=== PATIENT | male | born 1985 | race Caucasian/White ===

== ENCOUNTER 2017-02-20 23:39 | Emergency (ER) | payer SELFPAY ==
[2017-02-20 23:46] VITALS: BP 135/85
--- NOTE | 2017-02-21 00:03 | EDM.PDOC ---
ED HPI GENERAL MEDICAL PROBLEM - General Chief Complaint: Abdominal Pain Stated Complaint: [facility] Time Seen by Provider: 02/21/17 00:03 - History of Present Illness INITIAL COMMENTS - FREE TEXT/NARRATIVE: 31-year-old male brought into the emergency room by EMS after having too much to drink. Patient admits to having too much to drink he cannot quantify exactly much it was. He denies any drugs. He denies any suicidal wishes or intentions.. The patient thinks he may have bumped his head he has a little bit of a headache. Otherwise he denies any pain. He has some nausea no vomiting, denies abdominal pain. Patient states he does not drink on a regular basis he just over did it tonight. Lower Abdomen Pain Score (Numeric/FACES): 8 - Related Data Allergies Allergy/AdvReac Type Severity Reaction Status Date / Time No Known Allergies Allergy Verified 02/20/17 23:46 Home Meds: Home Meds . [Unable to Verify Home Med List] 02/20/17 [History] Past Medical History - Past Health History Medical/Surgical History: Denies Medical/Surgical History Other HEENT History: wears contacts Cardiovascular History: Reports: High Cholesterol, Hypertension Other Cardiovascular History: takes medications can't recall Gastrointestinal History: Reports: Hemorrhoids, Other (See Below) Other Gastrointestinal History: abdominal pain in past, anal fissure Musculoskeletal History: Reports: Back Pain, Chronic, Fracture, Other (See Below ) Other Musculoskeletal History: base of skull, vertebraes Neurological History: Reports: Migraines Psychiatric History: Reports: Anxiety, Panic Attack Endocrine/Metabolic History: Reports: Hypothyroidism Other Endocrine/Metabolic History: take meds that can't recall - Past Surgical History Other HEENT Surgeries/Procedures: eye surgery Social & Family History - Family History Family Medical History: Noncontributory Neurological: Reports: CVA - Tobacco Use Smoking Status *Q: Never Smoker Years of Tobacco use: 3 Packs/Tins Daily: 0.5 Used Tobacco, but Quit: Yes Month Tobacco Last Used: September Second Hand Smoke Exposure: No - Caffeine Use Caffeine Use: Reports: None - Alcohol Use Days Per Week of Alcohol Use: 2 Number of Drinks Per Day: 8 Total Drinks Per Week: 16 - Recreational Drug Use Recreational Drug Use: Yes Drug Use in Last 12 Months: No Recreational Drug Type: Reports: Marijuana/Hashish Recreational Drug Use Frequency: Not Used In Over 5 Months ED ROS GENERAL - Review of Systems Review Of Systems: See Below Constitutional: Reports: No Symptoms HEENT: Reports: No Symptoms Respiratory: Reports: No Symptoms Cardiovascular: Reports: No Symptoms GI/Abdominal: Reports: No Symptoms Musculoskeletal: Reports: No Symptoms Neurological: Reports: Headache. Denies: No Symptoms, Confusion, Dizziness, Seizure, Syncope, Tremors, Difficulty Walking ED EXAM, GENERAL - Physical Exam Exam: See Below Exam Limited By: No Limitations General Appearance: Alert, No Apparent Distress, Other (He is intoxicated but is cooperative) Ears: Normal External Exam, Normal Canal, Hearing Grossly Normal, Normal TMs Nose: Normal Inspection, Normal Mucosa, No Blood Throat/Mouth: Normal Inspection, Normal Lips, Normal Teeth, Normal Gums, Normal Oropharynx, Normal Voice, No Airway Compromise Head: Atraumatic, Normocephalic Neck: Normal Inspection, Supple, Non-Tender, Full Range of Motion Respiratory/Chest: No Respiratory Distress, Lungs Clear, Normal Breath Sounds, No Accessory Muscle Use, Chest Non-Tender Cardiovascular: Normal Peripheral Pulses, Regular Rate, Rhythm, No Edema, No Gallop, No JVD, No Murmur, No Rub GI/Abdominal: Normal Bowel Sounds, Soft, Non-Tender Back Exam: Normal Inspection, Full Range of Motion. No: CVA Tenderness (L), CVA Tenderness (R) Neurological: Alert, Other (He is intoxicated) Course - Vital Signs Last Recorded V/S: Last Vital Signs Temp 36.1 C 02/20/17 23:42 Pulse 81 02/20/17 23:42 Resp 12 02/20/17 23:42 BP 135/85 02/20/17 23:42 Pulse Ox 95 02/20/17 23:42 - Orders/Labs/Meds Orders: Active Orders 24 hr Category Date Time Status Head wo Cont [CT] Stat Exams 02/21/17 01:15 Taken Labs: Laboratory Tests 02/21/17 02/21/17 02/21/17 Range/Units 00:50 00:50 00:50 WBC 6.28 (4.23-9.07) K/mm3 RBC 4.88 (4.63-6.08) M/mm3 Hgb 15.5 (13.7-17.5) gm/L Hct 42.7 (40.1-51.0) % MCV 87.5 (79.0-92.2) fl MCH 31.8 (25.7-32.2) pg MCHC 36.3 H (32.2-35.5) g/dl RDW Std Deviation 38.2 (35.1-43.9) fL Plt Count 303 (163-337) K/mm3 MPV 9.3 L (9.4-12.3) fl Neutrophils % (Manual) 67 H (40-60) % Band Neutrophils % 0 (0-10) % Lymphocytes % (Manual) 29 (20-40) % Monocytes % (Manual) 4 (2-10) % Eosinophils % (Manual) 0 L (0.8-7.0) % Basophils % (Manual) 0 L (0.2-1.2) Platelet Estimate Adequate Plt Morphology Comment Normal RBC Morph Comment Normal Sodium 143 (136-145) mEq/L Potassium 3.2 L (3.5-5.1) mEq/L Chloride 105 (98-107) mEq/L Carbon Dioxide 25 (21-32) mEq/L Anion Gap 16.2 H (5-15) BUN 11 (7-18) mg/dL Creatinine 0.8 (0.7-1.3) mg/dL Est Cr Clr Drug Dosing TNP Estimated GFR (MDRD) > 60 (>60) mL/min BUN/Creatinine Ratio 13.8 L (14-18) Glucose 116 H (74-106) mg/dL Calcium 8.1 L (8.5-10.1) mg/dL Total Bilirubin 0.3 (0.2-1.0) mg/dL AST 37 (15-37) U/L ALT 72 H (16-63) U/L Alkaline Phosphatase 77 (46-116) U/L Total Protein 7.6 (6.4-8.2) g/dl Albumin 3.8 (3.4-5.0) g/dl Globulin 3.8 gm/dL Albumin/Globulin Ratio 1.0 (1-2) TSH 3rd Generation 0.206 L (0.358-3.74) uIU/mL Urine Color (Yellow) Urine Appearance (Clear) Urine pH (5.0-8.0) Ur Specific [place] (1.005-1.030) Urine Protein (Negative) Urine Glucose (UA) (Negative) Urine Ketones (Negative) Urine Occult Blood (Negative) Urine Nitrite (Negative) Urine Bilirubin (Negative) Urine Urobilinogen (0.2-1.0) Ur Leukocyte Esterase (Negative) Urine RBC (0-5) /hpf Urine WBC (0-5) /hpf Ur Epithelial Cells (0-5) /hpf Urine Bacteria (FEW) /hpf Urine Mucus (FEW) /hpf Salicylates 0.6 L (2.8-20) mg/dL Urine Opiates Screen (NEGATIVE) Ur Buprenorphine Scrn (NEGATIVE) Ur Oxycodone Screen (NEGATIVE) Urine Methadone Screen (NEGATIVE) Ur Propoxyphene Screen (NEGATIVE) Acetaminophen 0 L (10-30) ug/mL Ur Barbiturates Screen (NEGATIVE) Ur Tricyclics Screen (NEGATIVE) Ur Phencyclidine Scrn (NEGATIVE) Ur Amphetamine Screen (NEGATIVE) U Methamphetamines Scrn (NEGATIVE) U Benzodiazepines Scrn (NEGATIVE) U Cocaine Metab Screen (NEGATIVE) U Marijuana (THC) Screen (NEGATIVE) Ethyl Alcohol 0.19 (0.00) gm% 02/21/17 02/21/17 Range/Units 02:41 02:41 WBC (4.23-9.07) K/mm3 RBC (4.63-6.08) M/mm3 Hgb (13.7-17.5) gm/L Hct (40.1-51.0) % MCV (79.0-92.2) fl MCH (25.7-32.2) pg MCHC (32.2-35.5) g/dl RDW Std Deviation (35.1-43.9) fL Plt Count (163-337) K/mm3 MPV (9.4-12.3) fl Neutrophils % (Manual) (40-60) % Band Neutrophils % (0-10) % Lymphocytes % (Manual) (20-40) % Monocytes % (Manual) (2-10) % Eosinophils % (Manual) (0.8-7.0) % Basophils % (Manual) (0.2-1.2) Platelet Estimate Plt Morphology Comment RBC Morph Comment Sodium (136-145) mEq/L Potassium (3.5-5.1) mEq/L Chloride (98-107) mEq/L Carbon Dioxide (21-32) mEq/L Anion Gap (5-15) BUN (7-18) mg/dL Creatinine (0.7-1.3) mg/dL Est Cr Clr Drug Dosing Estimated GFR (MDRD) (>60) mL/min BUN/Creatinine Ratio (14-18) Glucose (74-106) mg/dL Calcium (8.5-10.1) mg/dL Total Bilirubin (0.2-1.0) mg/dL AST (15-37) U/L ALT (16-63) U/L Alkaline Phosphatase (46-116) U/L Total Protein (6.4-8.2) g/dl Albumin (3.4-5.0) g/dl Globulin gm/dL Albumin/Globulin Ratio (1-2) TSH 3rd Generation (0.358-3.74) uIU/mL Urine Color Yellow (Yellow) Urine Appearance Clear (Clear) Urine pH 6.0 (5.0-8.0) Ur Specific [place] 1.020 (1.005-1.030) Urine Protein Negative (Negative) Urine Glucose (UA) Negative (Negative) Urine Ketones Trace H (Negative) Urine Occult Blood Negative (Negative) Urine Nitrite Negative (Negative) Urine Bilirubin Negative (Negative) Urine Urobilinogen 0.2 (0.2-1.0) Ur Leukocyte Esterase Negative (Negative) Urine RBC 0-5 (0-5) /hpf Urine WBC 0-5 (0-5) /hpf Ur Epithelial Cells 0-5 (0-5) /hpf Urine Bacteria Not seen (FEW) /hpf Urine Mucus Not seen (FEW) /hpf Salicylates (2.8-20) mg/dL Urine Opiates Screen Negative (NEGATIVE) Ur Buprenorphine Scrn Negative (NEGATIVE) Ur Oxycodone Screen Negative (NEGATIVE) Urine Methadone Screen Negative (NEGATIVE) Ur Propoxyphene Screen Negative (NEGATIVE) Acetaminophen (10-30) ug/mL Ur Barbiturates Screen Negative (NEGATIVE) Ur Tricyclics Screen Negative (NEGATIVE) Ur Phencyclidine Scrn Negative (NEGATIVE) Ur Amphetamine Screen Negative (NEGATIVE) U Methamphetamines Scrn Negative (NEGATIVE) U Benzodiazepines Scrn Negative (NEGATIVE) U Cocaine Metab Screen Negative (NEGATIVE) U Marijuana (THC) Screen Negative (NEGATIVE) Ethyl Alcohol (0.00) gm% Meds: Medications Discontinued Medications Generic Name Dose Route Start Last Admin Trade Name Freq PRN Reason Stop Dose Admin Lactated Ringer's 1,000 mls @ 999 mls/hr 02/21/17 00:46 02/21/17 01:32 Ringers, Lactated IV 02/21/17 01:46 999 mls/hr .BOLUS ONE Administration Ondansetron HCl 4 mg 02/21/17 00:46 02/21/17 01:32 Zofran IVPUSH 02/21/17 00:47 4 mg ONETIME ONE Administration - Re-Assessments/Exams Free Text/Narrative Re-Assessment/Exam: 02/21/17 03:39 Patient has done well in the emergency department labs reviewed. Patient again confirms he is not suicidal and has no wishes to hurt himself he will be discharged home. Departure - Departure Time of Disposition: 03:40 Disposition: Home, Self-Care 01 Clinical Impression: Alcohol intoxication Qualifiers: Complication of substance-induced condition: uncomplicated Qualified Code(s): F10.120 - Alcohol abuse with intoxication, uncomplicated - Discharge Information Forms: ED Department Discharge Additional Instructions: Return to the emergency room with any questions or problems. - My Orders Last 24 Hours: My Active Orders 02/21/17 01:15 Head wo Cont [CT] Stat - Assessment/Plan Last 24 Hours: My Active Orders 02/21/17 01:15 Head wo Cont [CT] Stat
[2017-02-21] MEDS ORDERED: Ondansetron 4 MG/2 ML SDV IVPUSH ONE (00:46)
[2017-02-21] MEDS ORDERED: Lactated Ringers 1,000 ML IV ONE (00:46)
[2017-02-21 01:34] LABS: ACETAMINOPHEN 0 ug/mL (10-30)
--- NOTE | 2017-02-21 08:42 | CT ---
Head CT Technique: Multiple axial sections through the brain were obtained. Intravenous contrast was not utilized. Comparison: Previous head CT exam of 03/29/14 is available. Findings: Ventricles along with basal cisterns and sulci over the convexities are within normal limits for the patient's age. No abnormal parenchymal densities are seen. No evidence of intracranial hemorrhage. No midline shift or mass effect is seen. Bone window settings were reviewed which show no discrete calvarial abnormality. Visualized sinuses are clear. Impression: 1. No acute intracranial abnormality is identified. No significant change is appreciated from prior head CT exam. Diagnostic code #1 Agree with preliminary report issued by [facility] ([facility] preliminary report dictated on 02/21/17, 3:16 AM Central Time)
== END 2017-02-21 03:56 | disposition home or self-care (01) ==
LOC: JD.ED 23:39
DX: F10.120 Alcohol abuse with intoxication, uncomplicated (principal); I10 Essential (primary) hypertension; E78.00 Pure hypercholesterolemia, unspecified; G43.909 Migraine, unspecified, not intractable, without status migrainosus; F41.9 Anxiety disorder, unspecified; E03.9 Hypothyroidism, unspecified; Z87.891 Personal history of nicotine dependence; Y90.0 Blood alcohol level of less than 20 mg/100 ml
CPT/HCPCS: 36415; 70450; 80053; 80306; 81001; 84443; 85025; 96361; 96374; 99285; G0480; J2405; J7120; 99284

== ENCOUNTER 2017-04-25 01:23 | Emergency (ER) | payer SELFPAY ==
[2017-04-25] MEDS ORDERED: LORazepam 2 MG/ML MDV IVPUSH ONE (01:41)
[2017-04-25] MEDS ORDERED: Metoclopramide 10 MG/2 ML SDV IVPUSH ONE (01:41)
--- NOTE | 2017-04-25 01:44 | EDM.PDOC ---
ED HPI GENERAL MEDICAL PROBLEM - General Chief Complaint: Chest Pain Stated Complaint: chest pain Time Seen by Provider: 04/25/17 01:40 Source of Information: Reports: Patient History Limitations: Reports: No Limitations - History of Present Illness INITIAL COMMENTS - FREE TEXT/NARRATIVE: 32-year-old male who is quite intoxicated by alcohol presents to the ED stating that he developed right-sided chest pain around midnight. States it hurts worse when he takes a deep breath. He does have a bit of a cough but is not bringing up any sputum. He does not smoke cigarettes. Denies any fever or chills. Denies any recent vomiting or blood in emesis or stool. Admits to having a lot of heartburn and indigestion symptoms. He has not take Zantac or Prilosec. He states a lot of times Tums seems to make things worse rather than better. He reports he did fall about 3 days ago and landed hard on his right side of his chest. ECG done by triage nurse shows a sinus rhythm at 95/m with a left anterior fascicular block and left axis deviation of -43 there is poor R-wave progression but no signs of ischemia. Onset: Today, Sudden Onset Date: 04/25/17 Onset Time: 00:00 Duration: Hour(s):, Intermittent, Waxing/Waning Location: Reports: Chest (Right anterior chest.) Quality: Reports: Sharp, Stabbing Severity: Moderate Improves with: Reports: None Worsens with: Reports: Breathing Context: Denies: Activity, Exercise, Lifting, Sick Contact, Trauma, Other Associated Symptoms: Reports: Chest Pain, Cough, Shortness of Breath. Denies: No Other Symptoms, Confusion (See history present illness), cough w sputum ( Nonproductive), Diaphoresis, Fever/Chills, Headaches, Loss of Appetite, Malaise , Nausea/Vomiting, Rash, Seizure, Syncope, Weakness (Can take a deep breath because it makes the pain worse.) Treatments LUMBER MARKER: Reports: Other (see below) (None.) Right Middle Chest Pain Score (Numeric/FACES): 6 - Related Data Allergies Allergy/AdvReac Type Severity Reaction Status Date / Time No Known Allergies Allergy Verified 02/20/17 23:46 Home Meds: Home Meds Hydrochlorothiazide 25 mg PO DAILY 04/25/17 [History] Levothyroxine Sodium [Synthroid] 200 mcg PO DAILY 04/25/17 [History] buPROPion [Wellbutrin XL] 150 mg PO DAILY 04/25/17 [History] Past Medical History - Past Health History Medical/Surgical History: Denies Medical/Surgical History HEENT History: Reports: Impaired Vision Other HEENT History: wears contacts Cardiovascular History: Reports: High Cholesterol, Hypertension Other Cardiovascular History: takes medications can't recall Respiratory History: Reports: Asthma Gastrointestinal History: Reports: Hemorrhoids, Other (See Below) Other Gastrointestinal History: abdominal pain in past, anal fissure Genitourinary History: Reports: Other (See Below) Other Genitourinary History: painful urination Musculoskeletal History: Reports: Back Pain, Chronic, Fracture, Other (See Below ) Other Musculoskeletal History: base of skull, vertebraes Neurological History: Reports: Migraines Psychiatric History: Reports: Anxiety, Panic Attack Endocrine/Metabolic History: Reports: Hypothyroidism Other Endocrine/Metabolic History: take meds that can't recall - Past Surgical History HEENT Surgical History: Reports: Eye Surgery Other HEENT Surgeries/Procedures: eye surgery Social & Family History - Family History Family Medical History: Noncontributory Neurological: Reports: CVA - Tobacco Use Smoking Status *Q: Never Smoker Years of Tobacco use: 3 Packs/Tins Daily: 0.5 Used Tobacco, but Quit: Yes Month Tobacco Last Used: September Second Hand Smoke Exposure: No - Caffeine Use Caffeine Use: Reports: None - Alcohol Use Days Per Week of Alcohol Use: 2 Number of Drinks Per Day: 8 Total Drinks Per Week: 16 - Recreational Drug Use Recreational Drug Use: No Drug Use in Last 12 Months: No Recreational Drug Type: Reports: Marijuana/Hashish Recreational Drug Use Frequency: Not Used In Over 5 Months - Living Situation & Occupation Living situation: Reports: Occupation: Employed (Self-employed) [facility] [employer] [facility] - Review of Systems Review Of Systems: See Below Constitutional: Denies: Fever, Chills, Malaise, Weakness, Fatigue, Night Sweats , Diaphoresis, Decreased Appetite, Weight Loss HEENT: Reports: No Symptoms Respiratory: Reports: Shortness of Breath (Can take a deep breath as it makes pleuritic chest pain worse on the right chest.), Pleuritic Chest Pain (Right side of chest.), Cough. Denies: Wheezing, Sputum, Hemoptysis (Mild cough nonproductive) Cardiovascular: Reports: Chest Pain, Blood Pressure Problem (See history present illness). Denies: Claudication, Dyspnea on Exertion, Edema, Lightheadedness, Orthopnea ( controlled with medication), Palpitations Endocrine: Reports: No Symptoms GI/Abdominal: Reports: No Symptoms : Reports: Frequency Musculoskeletal: Reports: Back Pain (Intermittent problems with low back pain) Skin: Reports: No Symptoms Neurological: Reports: No Symptoms Psychiatric: Reports: Anxiety, Depression Hematologic/Lymphatic: Reports: No Symptoms, Other ED EXAM, GENERAL - Physical Exam Exam: See Below Exam Limited By: Intoxication (Patient is obviously quite intoxicated by alcohol ) General Appearance: Anxious, Mild Distress Eye Exam: Bilateral Eye: Conjunctival Injection (Bilaterally.), Nystagmus ( Moderate bilaterally on lateral gaze) Throat/Mouth: Normal Inspection, Normal Oropharynx, Normal Voice, Other (Speech is mildly dysarthric) Head: Atraumatic, Normocephalic, Other ( no recent evidence of fall or injury to the head) Neck: Normal Inspection, Supple, Non-Tender, Full Range of Motion. No: Lymphadenopathy (L), Lymphadenopathy (R) Respiratory/Chest: No Respiratory Distress, Lungs Clear, Decreased Breath Sounds (Patient is splinting and taking shallow respirations.). No: Respiratory Distress, Rales, Rhonchi, Wheezing, Stridor, Pleural Rub Cardiovascular: Normal Peripheral Pulses, Regular Rate, Rhythm, No Edema, No Gallop, No Murmur Peripheral Pulses: 2+: Posterior Tibial (L), Posterior Tibial (R), Dorsalis Pedis (L), Dorsalis Pedis (R) GI/Abdominal: Normal Bowel Sounds, Soft, Tender (Epigastrium and right upper quadrant with). No: Guarding ( no rebound or guarding), Rebound Back Exam: Normal Inspection, Full Range of Motion. No: CVA Tenderness (L), CVA Tenderness (R) Extremities: Normal Inspection, Normal Range of Motion, Non-Tender, No Pedal Edema Neurological: Alert, Oriented, CN II-XII Intact, Normal Cognition, No Motor/ Sensory Deficits. No: Normal Gait Psychiatric: Anxious Skin Exam: Warm, Dry, Intact, Normal Color, No Rash EKG INTERPRETATION EKG Date: 04/25/17 Time: 01:30 Rhythm: NSR Rate (Beats/Min): 95 [place]: LAD-Left [place] Deviation (-43 has a left anterior fascicular block pattern ) P-Wave: Present QRS: Other (R-wave progression) ST-T: Normal (with no signs of ischemia) QT: Normal Course - Vital Signs Last Recorded V/S: Last Vital Signs Temp 35.7 C 04/25/17 01:27 Pulse 95 04/25/17 01:27 Resp 18 04/25/17 01:27 BP 127/90 04/25/17 01:27 Pulse Ox 97 04/25/17 01:27 - Orders/Labs/Meds Orders: Active Orders 24 hr Category Date Time Status EKG 12 Lead [EKG Documentation Completion] [RC] STAT Care 04/25/17 01:34 Active Chest 1V Frontal [CR] Stat Exams 04/25/17 01:42 Taken DRUG SCREEN, URINE [URCHEM] Stat Lab 04/25/17 01:43 Uncollected Dextrose 5%-0.9% NaCl [Dextrose 5%-Normal Saline] 1,000 Med 04/25/17 01:45 Active ml IV ASDIRECTED Medication Orders Dextrose/Sodium Chloride (Dextrose 5%-Normal Saline) 1,000 mls @ 150 mls/hr IV ASDIRECTED STEPHANI Last Admin: 04/25/17 01:48 Dose: 150 mls/hr Labs: Laboratory Tests 04/25/17 04/25/17 04/25/17 Range/Units 01:41 01:41 01:41 WBC 8.14 (4.23-9.07) K/mm3 RBC 5.00 (4.63-6.08) M/mm3 Hgb 15.9 (13.7-17.5) gm/L Hct 44.5 (40.1-51.0) % MCV 89.0 (79.0-92.2) fl MCH 31.8 (25.7-32.2) pg MCHC 35.7 H (32.2-35.5) g/dl RDW Std Deviation 39.7 (35.1-43.9) fL Plt Count 348 H (163-337) K/mm3 MPV 9.2 L (9.4-12.3) fl Neutrophils % (Manual) 44 (40-60) % Band Neutrophils % 0 (0-10) % Lymphocytes % (Manual) 42 H (20-40) % Atypical Lymphs % 3 % Monocytes % (Manual) 8 (2-10) % Eosinophils % (Manual) 1 (0.8-7.0) % Basophils % (Manual) 2 H (0.2-1.2) Platelet Estimate Adequate Plt Morphology Comment Normal RBC Morph Comment Normal PT 9.9 (8.0-13.0) SECONDS INR 0.91 D-Dimer, Quantitative (0.19-0.59) mg/L Sodium 142 (136-145) mEq/L Potassium 3.2 L (3.5-5.1) mEq/L Chloride 102 (98-107) mEq/L Carbon Dioxide 27 (21-32) mEq/L Anion Gap 16.2 H (5-15) BUN 13 (7-18) mg/dL Creatinine 1.1 (0.7-1.3) mg/dL Est Cr Clr Drug Dosing 98.19 mL/min Estimated GFR (MDRD) > 60 (>60) mL/min BUN/Creatinine Ratio 11.8 L (14-18) Glucose 136 H (74-106) mg/dL Calcium 8.7 (8.5-10.1) mg/dL Total Bilirubin 0.4 (0.2-1.0) mg/dL AST TNP ALT 57 (16-63) U/L Alkaline Phosphatase 86 (46-116) U/L CK-MB (CK-2) 1.7 (0-3.6) ng/ml Troponin I < 0.017 (0.00-0.056) ng/mL C-Reactive Protein 0.5 (<1.0) mg/dL Total Protein 7.8 (6.4-8.2) g/dl Albumin 4.1 (3.4-5.0) g/dl Globulin 3.7 gm/dL Albumin/Globulin Ratio 1.1 (1-2) Lipase 170 (73-393) U/L Ethyl Alcohol 0.20 (0.00) gm% 04/25/17 04/25/17 Range/Units 04:36 04:36 WBC (4.23-9.07) K/mm3 RBC (4.63-6.08) M/mm3 Hgb (13.7-17.5) gm/L Hct (40.1-51.0) % MCV (79.0-92.2) fl MCH (25.7-32.2) pg MCHC (32.2-35.5) g/dl RDW Std Deviation (35.1-43.9) fL Plt Count (163-337) K/mm3 MPV (9.4-12.3) fl Neutrophils % (Manual) (40-60) % Band Neutrophils % (0-10) % Lymphocytes % (Manual) (20-40) % Atypical Lymphs % % Monocytes % (Manual) (2-10) % Eosinophils % (Manual) (0.8-7.0) % Basophils % (Manual) (0.2-1.2) Platelet Estimate Plt Morphology Comment RBC Morph Comment PT (8.0-13.0) SECONDS INR D-Dimer, Quantitative < 0.19 L (0.19-0.59) mg/L Sodium (136-145) mEq/L Potassium (3.5-5.1) mEq/L Chloride (98-107) mEq/L Carbon Dioxide (21-32) mEq/L Anion Gap (5-15) BUN (7-18) mg/dL Creatinine (0.7-1.3) mg/dL Est Cr Clr Drug Dosing mL/min Estimated GFR (MDRD) (>60) mL/min BUN/Creatinine Ratio (14-18) Glucose (74-106) mg/dL Calcium (8.5-10.1) mg/dL Total Bilirubin (0.2-1.0) mg/dL AST ALT (16-63) U/L Alkaline Phosphatase (46-116) U/L CK-MB (CK-2) 1.4 (0-3.6) ng/ml Troponin I < 0.017 (0.00-0.056) ng/mL C-Reactive Protein (<1.0) mg/dL Total Protein (6.4-8.2) g/dl Albumin (3.4-5.0) g/dl Globulin gm/dL Albumin/Globulin Ratio (1-2) Lipase (73-393) U/L Ethyl Alcohol (0.00) gm% Meds: Medications Generic Name Dose Route Start Last Admin Trade Name Freq PRN Reason Stop Dose Admin Dextrose/Sodium Chloride 1,000 mls @ 150 mls/hr 04/25/17 01:45 04/25/17 01:48 Dextrose 5%-Normal Saline IV 150 mls/hr ASDIRECTED STEPHANI Administration Discontinued Medications Generic Name Dose Route Start Last Admin Trade Name Lyric PRN Reason Stop Dose Admin Lorazepam 1 mg 04/25/17 01:41 04/25/17 01:48 Ativan IVPUSH 04/25/17 01:42 1 mg ONETIME ONE Administration Metoclopramide HCl 10 mg 04/25/17 01:41 04/25/17 01:49 Reglan IVPUSH 04/25/17 01:42 10 mg ONETIME ONE Administration - Radiology Interpretation Free Text/Narrative:: 32-year-old male presents to the ED rather intoxicated with complaints of sudden onset of right anterior chest pain. Described as fairly sharp and stabbing eye pleuritic. No associated severe cough or sputum production no fever or chills. Does have pain localized to the right anterior chest wall particularly ribs 4 and 5 in the midclavicular line. He is splinting respirations and not taking a deep breath due to the pain. Vital signs are stable including O2 sats of 97% on room air. ECG shows sinus rhythm at 95/m with poor R-wave progression and Magdaleno's of a left anterior fascicular block pattern. This is unchanged compared to previous ECGs. Plan 1 view chest x-ray routine labs to include cardiac markers and serum lipase level. Will be given Ativan 1 mg IV and Reglan 10 mg IV for sedation as I do not feel his chest pain is cardiac in origin. Appears to be chest wall in origin. - Re-Assessments/Exams Free Text/Narrative Re-Assessment/Exam: 04/25/17 03;05: Labs reveal a normal white count at 8.14. Hemoglobin is 15.9 with hematocrit of 44.5. Platelets 348,000. Coags are normal with a ET of 9.9 and INR 0.91. Chemistry shows a sodium of 142 potassium slightly low at 3.2 chloride 102 bicarbonate 27. Anion gap is slightly elevated at 16.2 creatinine is 1.1 lipase normal at 170. Blood alcohol is 0.20 g percent. CK-MB fraction is 1.7 troponin is less than 0.017. Patient has been basically sleeping since having into the ED. His chest x-ray done portably was sub par as he would not take a deep enough breath to allow good visualization of his lung banda. The portions of lung banda visualized are normal and cardiac silhouette is normal. No rib fractures were identified. No pneumothorax present. Plan I will repeat his cardiac markers at around 0430 hrs. 04/25/17 05:25 second set of cardiac markers are essentially the same or lower than they were initially. CK-MB fraction is 1.4 and his troponin was less than 0.017. D-dimer was less than 0.19. This essentially really rules out any cardiac related illness. His pain is chest wall in origin. Part likely aggravated by underlying anxiety. He will be discharged to home once he is fully walking and talking as he was fairly intoxicated with a blood alcohol of 0.20 g percent when he arrived in the ED. 04/25/17 06:33 he is now much more alert and awake. He is able to provide more history than he could initially. He does have chest wall pain on palpation of the ribs right lateral chest wall. There is no bruising or contusions. I reviewed the x-rays once again and again no rib fractures were identified. Departure - Departure Time of Disposition: 06:35 Disposition: Home, Self-Care 01 Condition: Fair Clinical Impression: Non-cardiac chest pain, Right-sided chest wall pain Acute alcohol intoxication Qualifiers: Complication of substance-induced condition: uncomplicated Qualified Code(s): F10.929 - Alcohol use, unspecified with intoxication, unspecified Referrals: PCP,Not In Area [Primary Care Provider] - Forms: ED Department Discharge Additional Instructions: Evaluation in the emergency room tonight due to right-sided chest pain came on around midnight. Pain was described as quite sharp and stabbing and painful to deep breathe which we call pleurisy. Electrocardiogram / heart tracing done in the emergency room was within normal limits showing no evidence of heart related illness. Chest x-ray was suboptimal as you did not take a very deep breath but visualized portions of the lungs and heart were normal. No broken ribs were identified as you indicated a recent fall 3 days ago landing on the right side of your chest. Blood tests were done on 2 occasions during her stay in the emergency room to rule out any heart related illness. No evidence of heart attack or elevated heart enzymes were identified. Also no evidence of blood clot in the lung identified. Pain appears to be chest wall in origin likely from recent fall 3 days ago with injury to the chest wall which includes muscles in between the ribs as well as the rib lining called the periosteum. The periosteum which has a lot of nerve endings in it. It can be viral wart of course trauma related. Treatment is Aleve 2 tablets every 8 hours as needed to relieve pain and inflammation. Blood alcohol content was 0.20 g percent greater than 3 times the legal limit to drive a automobile. Alcohol abuse make cause inflammation of the food pipe and stomach which can sometimes refer pain into the chest as well. If you're drinking alcohol regularly with no plans to modify her stop drinking then strongly suggest using Prilosec 20 mg every night at bedtime to protect the stomach lining. - My Orders Last 24 Hours: My Active Orders 04/25/17 01:34 EKG 12 Lead [EKG Documentation Completion] [RC] STAT 04/25/17 01:42 Chest 1V Frontal [CR] Stat 04/25/17 01:43 DRUG SCREEN, URINE [URCHEM] Stat 04/25/17 01:45 Dextrose 5%-0.9% NaCl [Dextrose 5%-Normal Saline] 1,000 ml IV ASDIRECTED - Assessment/Plan Last 24 Hours: My Active Orders 04/25/17 01:34 EKG 12 Lead [EKG Documentation Completion] [RC] STAT 04/25/17 01:42 Chest 1V Frontal [CR] Stat 04/25/17 01:43 DRUG SCREEN, URINE [URCHEM] Stat 04/25/17 01:45 Dextrose 5%-0.9% NaCl [Dextrose 5%-Normal Saline] 1,000 ml IV ASDIRECTED
[2017-04-25] MEDS ORDERED: Dextrose 5%-0.9% NaCl 1,000 ML IV SCH (01:45)
[2017-04-25 06:58] VITALS: BP 149/77
--- NOTE | 2017-04-29 11:49 | CR ---
Chest: Frontal view of the chest was obtained. Comparison: Previous chest x-ray of 02/24/16. Limited inspiratory effort is seen. Haziness is noted within the left lung base most likely due to atelectasis from poor inspiratory effort although difficult to completely exclude an early area of pneumonia. Lungs otherwise are grossly clear. Bony structures are grossly intact. Impression: 1. Poor inspiratory study. 2. Slight increased density within the left base as described above. Diagnostic code #3
== END 2017-04-25 06:58 | disposition home or self-care (01) ==
LOC: JD.ED 01:23
DX: R07.89 Other chest pain (principal); F10.120 Alcohol abuse with intoxication, uncomplicated; I10 Essential (primary) hypertension; J45.909 Unspecified asthma, uncomplicated; G43.909 Migraine, unspecified, not intractable, without status migrainosus; Z79.899 Other long term (current) drug therapy; Z98.890 Other specified postprocedural states; E78.00 Pure hypercholesterolemia, unspecified
CPT/HCPCS: 36415; 71010; 80053; 82553; 83690; 84484; 85025; 85379; 85610; 86140; 93005; 96361; 96374; 96375; 99285; G0480; J2060; J2765; J7042; 99284

== ENCOUNTER 2018-01-18 02:08 | Emergency (ER) | payer SELFPAY ==
[2018-01-18] MEDS ORDERED: LORazepam 2 MG/ML SDV IVPUSH PRN (02:28)
--- NOTE | 2018-01-18 02:30 | EDM.PDOC ---
ED HPI GENERAL MEDICAL PROBLEM <Doug Puentes Anabelle - Last Filed: 01/18/18 10:24> - General Source of Information: Reports: Patient, EMS History Limitations: Reports: Intoxication <Yoana Rowe - Last Filed: 01/18/18 19:08> - General Chief Complaint: Neurological Problem Stated Complaint: [facility] Time Seen by Provider: 01/18/18 02:24 - History of Present Illness INITIAL COMMENTS - FREE TEXT/NARRATIVE: 32 y/o M brought in by EMS. Per EMS, they state he's been drinking this evening. Walked over to a neighbor's house and knocked on the door stating he couldn't breathe. They called EMS. Per EMS, he was hyperventilating and panicked at the scene. In the ED, he states he doesn't remember what happened and doesn't know why he's here. Impossible to get a coherent history - he doesn' t answer most of my questions, repeating "I don't remember." (Yoana Rowe) - Related Data Allergies Allergy/AdvReac Type Severity Reaction Status Date / Time No Known Allergies Allergy Verified 02/20/17 23:46 Home Meds: Home Meds Hydrochlorothiazide 25 mg PO DAILY 04/25/17 [History] Levothyroxine Sodium [Synthroid] 200 mcg PO DAILY 04/25/17 [History] buPROPion [Wellbutrin XL] 150 mg PO DAILY 04/25/17 [History] Past Medical History - Past Health History Medical/Surgical History: Denies Medical/Surgical History HEENT History: Reports: Impaired Vision Other HEENT History: wears contacts Cardiovascular History: Reports: High Cholesterol, Hypertension Other Cardiovascular History: takes medications can't recall Respiratory History: Reports: Asthma Gastrointestinal History: Reports: Hemorrhoids, Other (See Below) Other Gastrointestinal History: abdominal pain in past, anal fissure Genitourinary History: Reports: Other (See Below) Other Genitourinary History: painful urination Musculoskeletal History: Reports: Back Pain, Chronic, Fracture, Other (See Below ) Other Musculoskeletal History: base of skull, vertebraes Neurological History: Reports: Migraines Psychiatric History: Reports: Anxiety, Panic Attack Endocrine/Metabolic History: Reports: Hypothyroidism Other Endocrine/Metabolic History: take meds that can't recall - Past Surgical History HEENT Surgical History: Reports: Eye Surgery Other HEENT Surgeries/Procedures: eye surgery <Yoana Rowe - Last Filed: 01/18/18 19:08> Social & Family History - Family History Family Medical History: Noncontributory Neurological: Reports: CVA - Caffeine Use Caffeine Use: Reports: None - Living Situation & Occupation Living situation: Reports: Occupation: Employed (Self-employed) <Yoana Rowe - Last Filed: 01/18/18 19:08> ED ROS GENERAL - Review of Systems Review Of Systems: Unable To Obtain (due to intoxication) <Yoana Rowe - Last Filed: 01/18/18 19:08> - Physical Exam Exam: See Below Exam Limited By: Intoxication General Appearance: Alert, WD/WN, Anxious (tearful), Mild Distress Eye Exam: Bilateral Eye: Normal Inspection, PERRL Ears: Normal External Exam Nose: Normal Inspection Throat/Mouth: Normal Inspection, Normal Oropharynx, Normal Voice, No Airway Compromise Head Exam: Atraumatic, Normocephalic Neck: Normal Inspection Respiratory/Chest: No Respiratory Distress, Lungs Clear, Normal Breath Sounds Cardiovascular: Normal Peripheral Pulses, Regular Rate, Rhythm, No Murmur GI/Abdominal: Soft, Non-Tender, No Distention. No: Rebound Neuro Exam (Abbreviated): Alert, CN II-XII Intact, No Motor/Sensory Deficits, Other (Oriented to person. Not oriented to place or time) Back Exam: Normal Inspection Extremities: Normal Inspection Psychiatric: Anxious, Tearful Skin Exam: Warm, Dry, Intact, Normal Color, No Rash <Yoana Rowe - Last Filed: 01/18/18 19:08> Course <Doug Puentes - Last Filed: 01/18/18 10:24> <Yoana Rowe - Last Filed: 01/18/18 19:08> - Vital Signs Last Recorded V/S: Last Vital Signs Temp 36.1 C 01/18/18 02:10 Pulse 89 01/18/18 02:10 Resp 17 01/18/18 02:10 BP 126/77 01/18/18 02:10 Pulse Ox 98 01/18/18 02:10 - Orders/Labs/Meds Labs: Laboratory Tests 01/18/18 01/18/18 Range/Units 02:30 02:30 WBC 8.39 (4.23-9.07) K/mm3 RBC 5.07 (4.63-6.08) M/mm3 Hgb 15.9 (13.7-17.5) gm/L Hct 45.2 (40.1-51.0) % MCV 89.2 (79.0-92.2) fl MCH 31.4 (25.7-32.2) pg MCHC 35.2 (32.2-35.5) g/dl RDW Std Deviation 39.5 (35.1-43.9) fL Plt Count 349 H (163-337) K/mm3 MPV 8.9 L (9.4-12.3) fl Neut % (Auto) 58.9 (34.0-67.9) % Lymph % (Auto) 33.3 (21.8-53.1) % Mayes % (Auto) 5.7 (5.3-12.2) % Eos % (Auto) 0.6 L (0.8-7.0) Baso % (Auto) 0.2 (0.1-1.2) % Neut # (Auto) 4.94 (1.78-5.38) K/mm3 Lymph # (Auto) 2.79 (1.32-3.57) K/mm3 Mayes # (Auto) 0.48 (0.30-0.82) K/mm3 Eos # (Auto) 0.05 (0.04-0.54) K/mm3 Baso # (Auto) 0.02 (0.01-0.08) K/mm3 Manual Slide Review Normal smear Sodium 137 (136-145) mEq/L Potassium 3.7 (3.5-5.1) mEq/L Chloride 102 (98-107) mEq/L Carbon Dioxide 27 (21-32) mEq/L Anion Gap 11.7 (5-15) BUN 11 (7-18) mg/dL Creatinine 0.9 (0.7-1.3) mg/dL Est Cr Clr Drug Dosing TNP Estimated GFR (MDRD) > 60 (>60) mL/min BUN/Creatinine Ratio 12.2 L (14-18) Glucose 107 H (74-106) mg/dL Calcium 8.6 (8.5-10.1) mg/dL Total Bilirubin 0.4 (0.2-1.0) mg/dL AST 28 (15-37) U/L ALT 53 (16-63) U/L Alkaline Phosphatase 92 (46-116) U/L Total Protein 8.0 (6.4-8.2) g/dl Albumin 4.2 (3.4-5.0) g/dl Globulin 3.8 gm/dL Albumin/Globulin Ratio 1.1 (1-2) Ethyl Alcohol 0.22 (0.00) gm% Meds: Medications Discontinued Medications Generic Name Dose Route Start Last Admin Trade Name Freq PRN Reason Stop Dose Admin Sodium Chloride 1,000 mls @ 1,000 mls/hr 01/18/18 03:17 01/18/18 03:23 Normal Saline IV 01/18/18 04:16 1,000 mls/hr ONETIME ONE Administration Lorazepam 1 mg 01/18/18 02:28 01/18/18 02:45 Ativan IVPUSH 1 mg Q4H PRN Administration Agitation - Re-Assessments/Exams Free Text/Narrative Re-Assessment/Exam: 01/18/18 02:33 Shortly after arrival, patient became agitated and tried to leave. Stated he had a plane to catch and that he didn't know why he was here. We explained that it was 2:30 in the morning and he did not appear to be sober enough for safe discharge. He is crying. Will draw labs and reeval. 01/18/18 04:00 ETOH level 220, labs otherwise unremarkable. Patient now calm/ sleeping. Will reeval when awake. (Yoana Rowe) Departure - Departure Time of Disposition: 10:24 <Doug Puentes - Last Filed: 01/18/18 10:24> <Yoana Rowe - Last Filed: 01/18/18 19:08> - Departure Disposition: Home, Self-Care 01 Clinical Impression: Alcohol intoxication - Discharge Information Instructions: Alcohol Intoxication, [id number] Referrals: PCP,None [Primary Care Provider] - Forms: ED Department Discharge, ED Return to Work/School Form Additional Instructions: 1. Please call [facility] on Friday to get help with your alcohol problem. Call [phone] for more information.
[2018-01-18 03:07] VITALS: BP 126/77
[2018-01-18] MEDS ORDERED: Sodium Chloride 0.9% 1,000 ML IV ONE (03:17)
== END 2018-01-18 10:21 | disposition home or self-care (01) ==
LOC: JD.ED 02:08
DX: F10.129 Alcohol abuse with intoxication, unspecified (principal); E78.00 Pure hypercholesterolemia, unspecified; I10 Essential (primary) hypertension; J45.909 Unspecified asthma, uncomplicated; F41.0 Panic disorder [episodic paroxysmal anxiety]; E03.9 Hypothyroidism, unspecified; Y90.7 Blood alcohol level of 200-239 mg/100 ml; Z79.899 Other long term (current) drug therapy
CPT/HCPCS: 36415; 80053; 85025; 96361; 96374; 99285; G0480; J2060; J7040; 99284

== ENCOUNTER 2020-05-27 01:43 | Emergency (ER) | payer SELFPAY ==
[2020-05-27 02:03] VITALS: BP 129/82; PULSE 83
--- NOTE | 2020-05-27 02:25 | EDM.PDOC ---
ED HPI GENERAL MEDICAL PROBLEM - General Chief Complaint: Respiratory Problem Stated Complaint: COVID POS SOB Time Seen by Provider: 05/27/20 01:53 Source of Information: Reports: Patient History Limitations: Reports: Uncooperative (Argumentative - does not want to answer questions because they "stress him out") - History of Present Illness INITIAL COMMENTS - FREE TEXT/NARRATIVE: Mr. Patricia is a 35-year-old man who now presents to the ED with shortness of breath. He states that he was diagnosed with COVID-19 at the walk-in clinic about 2 weeks ago, and since then has been experiencing intermittent dyspnea and a nonproductive cough. No recent fever. The patient has not been taking any [id number] or home remedies. He states that he has continued to work, despite his diagnosis. Here in the ED, the patient is found to be hemodynamically stable, afebrile, saturating 99% on room air. Other than his intermittent dyspnea and cough, the patient denies having a recent fever, chills, sore throat, ear pain, nasal or sinus congestion, chest pain, palpitations, nausea, vomiting, constipation, diarrhea, abdominal pain, urinary symptoms, recent weight gain or weight loss, recent bloody bowel movements or black bowel movements, recent joint aches, headaches, or rashes. The patient does not have a PCP. - Related Data Allergies Allergy/AdvReac Type Severity Reaction Status Date / Time No Known Allergies Allergy Verified 05/27/20 02:03 Home Meds: Home Meds Albuterol Sulfate [Albuterol Sulfate Hfa] 2 puff IH Q4H PRN 05/27/20 [History] Past Medical History HEENT History: Reports: Impaired Vision (wears contacts) Cardiovascular History: Reports: High Cholesterol (untreated), Hypertension (untreated) Respiratory History: Reports: Asthma (suspected, not tested, untreated) Gastrointestinal History: Reports: Hemorrhoids, Other (See Below) (Anal fissure) Psychiatric History: Reports: Anxiety (untreated), Panic Attack (untreated) Endocrine/Metabolic History: Reports: Hypothyroidism (untreated), Obesity/BMI 30+ - Infectious Disease History Infectious Disease History: Reports: Novel Coronavirus (diagnosed early May 2020) - Past Surgical History HEENT Surgical History: Reports: Eye Surgery (left strabismus repair), Oral Surgery (dental extractions) Social & Family History - Family History Family Medical History: Noncontributory Neurological: Reports: CVA - Tobacco Use Smoking Status *Q: Former Smoker Years of Tobacco use: 5 Packs/Tins Daily: 1 Month/Year Tobacco Last Used: Quit 2009 - Caffeine Use Caffeine Use: Reports: Coffee - Alcohol Use Alcohol Use History: Yes Alcohol Use Frequency: Rarely - Recreational Drug Use Recreational Drug Use: No - Living Situation & Occupation Living situation: Reports: , Alone Occupation: Employed (Construction) ED ROS GENERAL - Review of Systems Review Of Systems: Comprehensive ROS is negative, except as noted in HPI. Musculoskeletal: Reports: Back Pain (chronic) ED EXAM, GENERAL - Physical Exam Exam: See Below Exam Limited By: No Limitations General Appearance: Alert, WD/WN, Anxious Eye Exam: Bilateral Eye: EOMI, Normal Inspection Ears: Normal External Exam, Hearing Grossly Normal Nose: Normal Inspection Throat/Mouth: Normal Inspection, Normal Lips, Normal Voice, No Airway Compromise Head: Atraumatic, Normocephalic Neck: Normal Inspection, Full Range of Motion Respiratory/Chest: No Respiratory Distress, Lungs Clear, Normal Breath Sounds, No Accessory Muscle Use. No: Decreased Breath Sounds, Crackles, Rhonchi, Wheezing, Stridor, Prolonged Expiration Cardiovascular: Normal Peripheral Pulses, Regular Rate, Rhythm, No Gallop, No JVD, No Murmur, No Rub Peripheral Pulses: 3+: Radial (L), Radial (R) GI/Abdominal: Normal Bowel Sounds, Soft, Non-Tender, No Organomegaly, No Distention, No Abnormal Bruit, No Mass (Male) Exam: Deferred Rectal (Males) Exam: Deferred Back Exam: Normal Inspection, Full Range of Motion, NT Extremities: Normal Inspection, Normal Range of Motion, No Pedal Edema, Normal Capillary Refill Neurological: Alert, Oriented, Normal Cognition, No Motor/Sensory Deficits Psychiatric: Normal Affect Skin Exam: Warm, Dry, Intact, Normal Color, No Rash Course - Vital Signs Last Recorded V/S: Last Vital Signs Temp 36.1 C 05/27/20 01:59 Pulse 83 05/27/20 01:59 Resp 18 05/27/20 01:59 BP 129/82 05/27/20 01:59 Pulse Ox 99 05/27/20 01:59 - Orders/Labs/Meds Orders: Active Orders 24 hr Category Date Time Status Chest 1V Frontal [CR] Stat Exams 05/27/20 02:07 Taken - Re-Assessments/Exams Free Text/Narrative Re-Assessment/Exam: 05/27/20 02:18 As above, the patient states that he was diagnosed with COVID-19 about 2 weeks ago at the walk-in clinic, and has now been experiencing shortness of breath on and off, with an occasional nonproductive cough. No recent fever. He is afebrile here in the ED, and his oxygen saturation is 99% on room air. His lungs are entirely clear to auscultation bilaterally. The patient was reluctant to answer my questions, stating that they "stressed him out". He is not wearing a mask - he was given one when he entered the ED, but reportedly ripped it off when he got to his exam room, despite being told that he needs to wear it. He appears to be quite anxious, and he acknowledges that he has anxiety and panic disorder, both untreated. I suspect that anxiety is the main cause of his dyspnea. Because the patient is not hypoxemic, neither admission to the hospital nor medi rodney treatment, such as remdesivir, dexamethasone, or convalescent plasma, is indicated. I have ordered a portable chest x-ray, but only to establish a baseline in case the patient's condition worsens in the future. There is no indication for blood work or other tests at this time. 05/27/20 02:44 Portable chest radiograph reviewed. Poor inspiratory effort. The cardiac silhouette is within normal limits. No pulmonary vascular congestion. No pleural effusions. No focal infiltrate. No pneumothorax. Formal read per the Radiologist pending. 05/27/20 02:58 Chest x-ray results discussed with the patient. I explained that his symptoms are most likely due to anxiety, not COVID-19, and I therefore recommended that I refer him to the clinic where he can establish a PCP and discuss treatment options for anxiety. With respect to his COVID-19 diagnosis, I explained to him that he is not permitted to work. He is to quarantine himself until he tests negative, because so long as he still tests positive, he is infectious. I cannot say how long that will take until he tests negative, but may take several months. For that, I will write the patient a note for work. Departure - Departure Time of Disposition: 03:00 Disposition: Home, Self-Care 01 Condition: Good Clinical Impression: COVID-19 - Discharge Information *PRESCRIPTION DRUG MONITORING PROGRAM REVIEWED*: Not Applicable *COPY OF PRESCRIPTION DRUG MONITORING REPORT IN PATIENT [id number]: Not Applicable Referrals: Namrata Hernandez NP [Nurse Practitioner] - Forms: ED Department Discharge, ED Return to Work/School Form Additional Instructions: You were seen in the emergency room for intermittent shortness of breath and cough in the setting of being diagnosed with COVID-19 about 2 weeks ago. Work-up in the ER included a chest x-ray, which returned unremarkable. You do not have pneumonia. Based on your history, physical exam, and ER x-ray, the cause of your shortness of breath is most likely due to anxiety, not COVID-19. We recommend that you follow-up with Namrata Hernandez NP, or one of the other providers in the clinic, to establish as PCP and discuss treatment options for anxiety. With respect to your COVID-19, you are not supposed to work. You are to self- quarantine until you tested negative, because as long as your testing positive, you are still infectious. It is hard to say how long you will continue to test positive; it may take several months. If any other problems, please do not hesitate to return to the ER. Sepsis Event Note (ED) - Evaluation Sepsis Screening Result: No Definite Risk - Focused Exam Vital Signs: Vital Signs Temp Pulse Resp BP Pulse Ox 05/27/20 01:59 36.1 C 83 18 129/82 99 - My Orders Last 24 Hours: My Active Orders 05/27/20 02:07 Chest 1V Frontal [CR] Stat - Assessment/Plan Last 24 Hours: My Active Orders 05/27/20 02:07 Chest 1V Frontal [CR] Stat
--- NOTE | 2020-05-27 06:32 | CR ---
Chest: Portable view of the chest was obtained. Comparison: Prior chest x-ray of 04/25/17. Heart size and mediastinum are normal. Lungs are clear with no acute parenchymal change. Bony structures are grossly intact. Impression: 1. Nothing acute is seen on frontal chest x-ray. Diagnostic code #1 This report was dictated in MDT
== END 2020-05-27 03:50 | disposition home or self-care (01) ==
LOC: JD.ED 01:43
DX: U07.1 COVID-19 (principal); I10 Essential (primary) hypertension; E66.9 Obesity, unspecified; Z87.891 Personal history of nicotine dependence; Z68.36 Body mass index [BMI] 36.0-36.9, adult
CPT/HCPCS: 71045; 71045-26; 99282; 99284-25

== ENCOUNTER 2021-03-01 09:00 | Emergency (ER) | payer OTHER ==
[2021-03-01] MEDS ORDERED: Metoclopramide 10 MG/2 ML SDV IVPUSH ONE (09:11)
[2021-03-01] MEDS ORDERED: Dextrose 5%-0.9% NaCl 1,000 ML IV SCH (09:15)
[2021-03-01 09:17] VITALS: BP 139/96; PULSE 61
--- NOTE | 2021-03-01 09:17 | EDM.PDOC ---
ED HPI GENERAL MEDICAL PROBLEM - General Chief Complaint: Neuro Symptoms/Deficits Stated Complaint: LOW BLOOD SUGAR Time Seen by Provider: 03/01/21 09:07 Source of Information: Reports: Patient History Limitations: Reports: No Limitations - History of Present Illness INITIAL COMMENTS - FREE TEXT/NARRATIVE: 35-year-old male presents to the ED per [facility]. Patient reports he was at a meeting at work this morning and started to feel unwell. By this he means lightheaded dizzy confused disoriented and when he tried to stand up his legs would not work. He was concerned that he was suffering a stroke. Of note the patient has been fasting daily for little over 2-1/2 months. He does not drink at all other than some mild apple cider vinegar. Stop drinking alcohol 9 months ago. Has lost approximately 30 pounds of weight. Patient has a history of hypothyroidism and went off medication 3 months ago. Paramedics identified blood sugar to be low on scene at 70. He was given to dextrose tablets orally and blood sugar here is now 103. He is alert oriented and answers all questions appropriately. Still feels weak. He cannot remember if he broke out in a sweat or not. No nausea or vomiting although he is nauseated at this time. Onset: Today, Sudden Onset Date: 03/01/21 Onset Time: 08:30 Duration: Minutes: Location: Reports: Generalized (Generalized sense of weakness. Confusion inability to talk and inability to walk. This occurred while he was seated at a meeting at work this morning.) Quality: Reports: Other (Generalized confusion, disorientation, inability to speak. Inability to walk. Diagnosis is hypoglycemia physiologic) Severity: Severe Improves with: Reports: Other (Improved with to dextrose tablets given p.o. by paramedics.) Worsens with: Reports: None Context: Reports: Other (Patient has been fasting for several days in an effort to lose weight.). Denies: Activity, Exercise, Sick Contact, Trauma Associated Symptoms: Reports: Confusion, Diaphoresis (Nausea without vomiting), Loss of Appetite, Malaise, Nausea/Vomiting, Weakness (Severe generalized with inability to walk). Denies: Chest Pain, Cough, cough w sputum, Fever/Chills, Headaches, Rash, Seizure, Syncope Treatments C[employer] P[employer] LO[employer]ER: Reports: Other (see below) (Yeast Washer gave him to dextrose tablets orally to improve his blood sugar from 70-1 03) - Related Data Allergies Allergy/AdvReac Type Severity Reaction Status Date / Time No Known Allergies Allergy Verified 05/27/20 02:03 Home Meds: Home Meds Albuterol Sulfate [Albuterol Sulfate Hfa] 2 puff IH Q4H PRN 05/27/20 [History] Past Medical History - Past Health History Medical/Surgical History: Denies Medical/Surgical History HEENT History: Reports: Impaired Vision (wears contacts) Other HEENT History: wears contacts Cardiovascular History: Reports: High Cholesterol (untreated), Hypertension (untreated) Other Cardiovascular History: takes medications can't recall Respiratory History: Reports: Asthma (suspected, not tested, untreated) Gastrointestinal History: Reports: Hemorrhoids, Other (See Below) (Anal fissure) Other Gastrointestinal History: abdominal pain in past, anal fissure Genitourinary History: Reports: Other (See Below) Other Genitourinary History: painful urination Musculoskeletal History: Reports: Back Pain, Chronic, Fracture, Other (See Below) Other Musculoskeletal History: base of skull, vertebraes Neurological History: Reports: Migraines Psychiatric History: Reports: Anxiety (untreated), Panic Attack (untreated) Endocrine/Metabolic History: Reports: Hypothyroidism (untreated), Obesity/BMI 30+ Other Endocrine/Metabolic History: take meds that can't recall Hematologic History: Reports: None Immunologic History: Reports: None Oncologic (Cancer) History: Reports: None Dermatologic History: Reports: None - Infectious Disease History Infectious Disease History: Reports: Novel Coronavirus (diagnosed early May 2020) - Past Surgical History HEENT Surgical History: Reports: Eye Surgery (left strabismus repair), Oral Surgery (dental extractions) Social & Family History - Family History Family Medical History: No Pertinent Family History Neurological: Reports: CVA - Caffeine Use Caffeine Use: Reports: Coffee - Living Situation & Occupation Living situation: Reports: , Alone Occupation: Employed (Construction) ED ROS GENERAL - Review of Systems Review Of Systems: See Below Constitutional: Reports: Malaise, Weakness, Fatigue, Decreased Appetite. Denies: Fever, Chills HEENT: Reports: Glasses Respiratory: Reports: No Symptoms Cardiovascular: Reports: No Symptoms Endocrine: Reports: No Symptoms GI/Abdominal: Reports: Nausea : Reports: No Symptoms Musculoskeletal: Reports: No Symptoms Skin: Reports: No Symptoms Neurological: Reports: No Symptoms Psychiatric: Reports: No Symptoms Hematologic/Lymphatic: Reports: No Symptoms Immunologic: Reports: No Symptoms ED EXAM, DIZZINESS - Physical Exam Exam: See Below Exam Limited By: No Limitations General Appearance: Alert, WD/WN, No Apparent Distress, Anxious, Other (Mildly anxious vital signs reveal a blood pressure of 125/79.) Eye Exam: Bilateral Eye: Normal Inspection (No scleral icterus or blepharal pallor.), PERRL Throat/Mouth: Normal Inspection, Normal Lips, Normal Oropharynx, Other (Tongue is moist.) Neck: Normal Inspection, Supple, Non-Tender, Full Range of Motion. No: Lymphadenopathy (L), Lymphadenopathy (R) Respiratory/Chest: No Respiratory Distress, Lungs Clear, Normal Breath Sounds, No Accessory Muscle Use Cardiovascular: Normal Peripheral Pulses, Regular Rate, Rhythm, No Edema, No Gallop, No Murmur, No Rub GI/Abdominal: Normal Bowel Sounds, Soft, Non-Tender, No Organomegaly, No Abnormal Bruit, No Mass, Pelvis Stable Neurological: Alert, Normal Mood/Affect, Normal Dorsiflexion, CN II-XII Intact, Normal Reflexes, No Motor/Sensory Deficits, Oriented x 3. No: Normal Gait (Not assessed) Extremities: Normal Inspection, Normal Range of Motion, Non-Tender, No Pedal Edema Psychiatric: Normal Affect, Normal Mood, Anxious (Mildly anxious) Skin Exam: Warm, Dry, Intact, Normal Color Course - Vital Signs Last Recorded V/S: Last Vital Signs Temp 35.9 C L 03/01/21 09:13 Pulse 61 03/01/21 09:13 Resp 18 03/01/21 09:13 BP 139/96 H 03/01/21 09:13 Pulse Ox 97 03/01/21 09:13 Orthostatic Blood Pressure [ 134/95 Standing] Orthostatic Blood Pressure [ 139/86 Supine] - Orders/Labs/Meds Orders: Active Orders 24 hr Category Date Time Status Blood Glucose Check, Bedside [RC] ONETIME Care 03/01/21 10:21 Ordered Orthostatic Vital Signs [RC] ASDIRECTED Care 03/01/21 09:16 Active TSH [CHEM] Stat Lab 03/01/21 09:10 Received Dextrose 5%-0.9% NaCl [Dextrose 5%-Normal Saline] 1,000 Med 03/01/21 09:15 Active ml IV ASDIRECTED Medication Orders Dextrose/Sodium Chloride (Dextrose 5%-Normal Saline) 1,000 mls @ 999 mls/hr IV ASDIRECTED STEPHANI Last Admin: 03/01/21 09:17 Dose: 999 mls/hr Documented by: LOKI Labs: Laboratory Tests 03/01/21 03/01/21 Range/Units 09:05 09:10 POC Glucose 103 H (70-99) mg/dL Ketones 0.04 (0.0-0.3) mM Meds: Medications Generic Name Dose Route Start Last Admin Trade Name Frenikki PRN Reason Stop Dose Admin Dextrose/Sodium Chloride 1,000 mls @ 999 mls/hr 03/01/21 09:15 03/01/21 09:17 Dextrose 5%-Normal Saline IV 999 mls/hr ASDIRECTED STEPHANI Administration Discontinued Medications Generic Name Dose Route Start Last Admin Trade Name Freq PRN Reason Stop Dose Admin Metoclopramide HCl 7.5 mg 03/01/21 09:11 03/01/21 09:17 Metoclopramide 10 Mg/2 Ml Sdv IVPUSH 03/01/21 09:12 7.5 mg ONETIME ONE Administration - Radiology Interpretation Free Text/Narrative:: 35-year-old male presents to the ED per [facility] after feeling unwell during a meeting at work this morning. History suggest the patient has been fasting for several days. He has been drinking apple cider vinegar only. He states he became confused and disoriented while at the meeting. He was asked questions and could not answer them. When he tried to stand and walk he was unable to do so due to leg weakness. Concern was that he might be having a stroke. Paramedics were summoned. They identified on scene that he was hypoglycemic which means physiological hypoglycemia since he is not on insulin or blood sugar lowering agents. He was treated with 2 dextrose tablets orally and blood sugar here is now 103. He is oriented and his speech is normal. Neur o exam is otherwise normal. Vital signs are normal. Orthostatic BPs to be checked. Will have a serum TSH and serum ketones drawn. He will be given D5 normal saline at open. 7.5 mg of Reglan IV for nausea relief. - Re-Assessments/Exams Free Text/Narrative Re-Assessment/Exam: 03/01/21 09:30: Patient is not orthostatic. 03/01/21 10:19 patient is feeling better after IV fluids with D5W. A blood sugar will now be checked. Departure - Departure Time of Disposition: 10:26 Disposition: Home, Self-Care 01 Condition: Fair Clinical Impression: Hypoglycemia - Discharge Information *PRESCRIPTION DRUG MONITORING PROGRAM REVIEWED*: Not Applicable *COPY OF PRESCRIPTION DRUG MONITORING REPORT IN PATIENT [id number]: Not Applicable Instructions: Hypoglycemia Referrals: PCP,None [Primary Care Provider] - Forms: ED Department Discharge, ED Return to Work/School Form Additional Instructions: Evaluation in the emergency room today in regards to development of low blood sugar without being on medications that lower blood sugar. We will call this ph ysiologic hypoglycemia. This means that blood sugar became too low simply from fasting and not taking in any adequate carbohydrates. You need to relax your fasting diet to include at least 20 g of carbohydrates per day to prevent hypoglycemia and overwhelming weakness. Make sure you are taking adequate fluids to maintain hydration as well particularly when the ambient temperature outside is above 75 degrees. Sepsis Event Note (ED) - Focused Exam Vital Signs: Vital Signs Temp Pulse Resp BP Pulse Ox 03/01/21 09:13 35.9 C L 61 18 139/96 H 97 - My Orders Last 24 Hours: My Active Orders 03/01/21 09:10 TSH [CHEM] Stat 03/01/21 09:15 Dextrose 5%-0.9% NaCl [Dextrose 5%-Normal Saline] 1,000 ml IV ASDIRECTED 03/01/21 09:16 Orthostatic Vital Signs [RC] ASDIRECTED 03/01/21 10:21 Blood Glucose Check, Bedside [RC] ONETIME - Assessment/Plan Last 24 Hours: My Active Orders 03/01/21 09:10 TSH [CHEM] Stat 03/01/21 09:15 Dextrose 5%-0.9% NaCl [Dextrose 5%-Normal Saline] 1,000 ml IV ASDIRECTED 03/01/21 09:16 Orthostatic Vital Signs [RC] ASDIRECTED 03/01/21 10:21 Blood Glucose Check, Bedside [RC] ONETIME
== END 2021-03-01 10:40 | disposition home or self-care (01) ==
LOC: JD.ED 09:00
DX: E16.2 Hypoglycemia, unspecified (principal); I10 Essential (primary) hypertension; E66.9 Obesity, unspecified; Z68.30 Body mass index [BMI] 30.0-30.9, adult
CPT/HCPCS: 36415; 82009; 82947; 84443; 96374; 99284; J2765; J7042

== ENCOUNTER 2023-02-26 20:17 | Emergency (ER) | payer BC, OTHER ==
[2023-02-26] MEDS ORDERED: Sodium Chloride 0.9% 10 ML Syringe FLUSH PRN (20:38)
[2023-02-26] MEDS ORDERED: Ondansetron 4 MG/2 ML SDV IVPUSH ONE (20:38)
[2023-02-26] MEDS ORDERED: HYDROmorphone 1 MG/ML Syringe IVPUSH STA (20:38)
[2023-02-26] MEDS ORDERED: Sodium Chloride 0.9% 1,000 ML IV SCH (20:45)
[2023-02-26 21:18] LABS: BASOPHILS ABSOLUTE AUTO 0.01 K/mm3 (0.01-0.08); BASOPHILS PERCENT AUTO 0.2 % (0.1-1.2); EOSINOPHILS ABSOLUTE AUTO 0.03 K/mm3 (0.04-0.54); EOSINOPHILS PERCENT AUTO 0.5 (0.8-7.0); HEMATOCRIT 43.4 % (40.1-51.0); HEMOGLOBIN 15.3 gm/dl (13.7-17.5); IMMATURE GRAN ABSOLUTE AUTO 0.02 K/mm3 (0.00-0.10); IMMATURE GRAN PERCENT AUTO 0.3 % (<=1.0); LYMPHOCYTES ABSOLUTE AUTO 2.34 K/mm3 (1.32-3.57); LYMPHOCYTES PERCENT AUTO 35.1 % (21.8-53.1); MEAN CORPUSCULAR HEMOGLOBIN 31.8 pg (25.7-32.2); MEAN CORPUSCULAR HGB CONC 35.3 g/dl (32.2-35.5); MEAN CORPUSCULAR VOLUME 90.2 fl (79.0-92.2); MEAN PLATELET VOLUME 9.3 fl (9.4-12.3); MONOCYTES ABSOLUTE AUTO 0.41 K/mm3 (0.30-0.82); MONOCYTES PERCENT AUTO 6.2 % (5.3-12.2); NEUTROPHILS ABSOLUTE AUTO 3.85 K/mm3 (1.78-5.38); NEUTROPHILS PERCENT AUTO 57.7 % (34.0-67.9); PLATELET COUNT,PLT 352 K/mm3 (163-337); RED BLOOD CELL COUNT 4.81 M/mm3 (4.63-6.08); WHITE BLOOD CELL COUNT,WBC 6.66 K/mm3 (4.23-9.07)
[2023-02-26 21:34] LABS: A/G RATIO 1.2 (1-2); ALBUMIN 4.3 g/dl (3.4-5.0); ANION GAP 8.6 (5-15); BILIRUBIN TOTAL 0.4 mg/dL (0.2-1.0); BUN/CREATININE RATIO 15.6 (14-18); CALCIUM 8.8 mg/dL (8.5-10.1); CREATININE 0.9 mg/dL (0.7-1.3); EST CRCL DRUG DOSING (CG) 114.56 mL/min; POTASSIUM,K 3.6 mEq/L (3.5-5.1); PROTEIN TOTAL,TP 7.8 g/dl (6.4-8.2)
[2023-02-26 21:37] LABS: APPEARANCE,URINE CLEAR (Clear); BILIRUBIN,URINE NEGATIVE (Negative); COLOR,URINE YELLOW (Yellow); GLUCOSE,URINE NEGATIVE (Negative); KETONES,URINE TRACE (Negative); LEUKOCYTE ESTERASE,URINE NEGATIVE (Negative); NITRITE,URINE NEGATIVE (Negative); OCCULT BLOOD,URINE NEGATIVE (Negative); PH,URINE 5.5 (5.0-8.0); PROTEIN,URINE TRACE (Negative); UROBILINOGEN,URINE 0.2 (0.2-1.0)
[2023-02-26 22:10] LABS: BACTERIA,URINE FEW /hpf (FEW); EPITHELIAL CELLS,URINE 0-5 /hpf (0-5); MUCUS,URINE FEW /hpf (FEW); RBC,URINE 0-5 /hpf (0-5); WBC,URINE 0-5 /hpf (0-5)
[2023-02-26 23:40] VITALS: BP 135/85; PULSE 63
== END 2023-02-26 22:53 | disposition home or self-care (01) ==
LOC: JD.ED 20:17
DX: R10.9 Unspecified abdominal pain (principal); E78.00 Pure hypercholesterolemia, unspecified; I10 Essential (primary) hypertension; J45.909 Unspecified asthma, uncomplicated; E03.9 Hypothyroidism, unspecified; E66.9 Obesity, unspecified; Z68.28 Body mass index [BMI] 28.0-28.9, adult; Z88.0 Allergy status to penicillin; Z86.16 Personal history of COVID-19
CPT/HCPCS: 36415; 74176; 80053; 81001; 85025; 86140; 96360; 99284; J3490; J7030

== ENCOUNTER 2023-10-09 21:21 | Emergency (ER) | payer BC, OTHER ==
[2023-10-09 21:51] VITALS: BP 143/99
[2023-10-09] MEDS: prednisoLONE Acetate 1% Ophth Susp 5 ML Bottle EYEBOTH ONE (22:14)
[2023-10-09 23:02] VITALS: PULSE 67
== END 2023-10-09 22:58 | disposition home or self-care (01) ==
LOC: JD.ED 21:21
DX: T59.91XA Toxic effect of unspecified gases, fumes and vapors, accidental (unintentional), initial encounter (principal); I10 Essential (primary) hypertension; J45.909 Unspecified asthma, uncomplicated; Z86.16 Personal history of COVID-19; Z79.899 Other long term (current) drug therapy; Z88.0 Allergy status to penicillin
CPT/HCPCS: 71045; 99284; A9270; 99283

== ENCOUNTER 2025-08-15 23:10 | Emergency (ER) | payer BC ==
[2025-08-15 23:32] VITALS: PULSE 97
[2025-08-16 00:17] LABS: BASOPHILS ABSOLUTE AUTO 0.0 K/mm3 (0.0-0.2); BASOPHILS PERCENT AUTO 0.4 % (0.0-1.0); EOSINOPHILS ABSOLUTE AUTO 0.0 K/mm3 (0.0-0.4); EOSINOPHILS PERCENT AUTO 0.5 % (0.0-6.0); IMMATURE GRAN ABSOLUTE AUTO 0.03 K/mm3 (0.00-0.05); IMMATURE GRAN PERCENT AUTO 0.4 % (0.0-0.4); LYMPHOCYTES ABSOLUTE AUTO 2.3 K/mm3 (1.0-4.8); LYMPHOCYTES PERCENT AUTO 28.3 % (24.0-44.0); MEAN PLATELET VOLUME 8.7 fl (9.4-12.4); MONOCYTES ABSOLUTE AUTO 0.6 K/mm3 (0.0-0.8); MONOCYTES PERCENT AUTO 7.2 % (0.0-8.0); NEUTROPHILS ABSOLUTE AUTO 5.1 K/mm3 (1.8-7.7); NEUTROPHILS PERCENT AUTO 63.2 % (41.0-71.0); NRBC ABSOLUTE 0.00 (0.00-0.02); NRBC PERCENT 0.0 % (0.0-0.2); PLATELET COUNT,PLT 317 K/mm3 (150-400); RED BLOOD CELL COUNT 4.48 M/mm3 (4.52-5.90); WHITE BLOOD CELL COUNT,WBC 8.03 K/mm3 (3.9-11.3)
[2025-08-16 00:38] LABS: A/G RATIO 1.0 (1-2); ALANINE AMINOTRANSFERASE,ALT 33.0 U/L (16-63); ASPARTATE AMNIOTRANSFERASE,AST 22.0 U/L (15-37); BILIRUBIN TOTAL 0.4 mg/dL (0.2-1.0); BLOOD UREA NITROGEN,BUN 11.0 mg/dL (7-18); CARBON DIOXIDE,CO2 29.0 mEq/L (21-32); CHLORIDE,CL 101.0 mEq/L (98-107); CREATININE 0.9 mg/dL (0.7-1.3); EST CRCL DRUG DOSING (CG) 107.67 mL/min; ESTIMATED GFR 112.0 mL/min (>60); GLUCOSE RANDOM 116.0 mg/dL (70-99); POTASSIUM,K 3.5 mEq/L (3.5-5.1); PROTEIN TOTAL,TP 7.1 g/dl (6.4-8.2); SODIUM,NA 138.0 mEq/L (136-145)
[2025-08-16 00:40] LABS: LACTIC ACID 1.1 mmol/L (0.4-2.0)
[2025-08-16] MEDS: Iopamidol 612 MG/ML 100 ML Bottle IVPUSH ONE (01:42)
[2025-08-16 02:08] LABS: APPEARANCE,URINE CLEAR (Clear); GLUCOSE,URINE NEGATIVE (Negative); OCCULT BLOOD,URINE NEGATIVE (Negative)
[2025-08-16 03:42] VITALS: BP 128/85
== END 2025-08-16 03:11 | disposition home or self-care (01) ==
LOC: JD.ED 23:10
DX: R10.84 Generalized abdominal pain (principal); M54.50 Low back pain, unspecified; I10 Essential (primary) hypertension; Z86.16 Personal history of COVID-19; Z88.0 Allergy status to penicillin
CPT/HCPCS: 36415; 74177; 80053; 81003; 83605; 83690; 85025; 99284; J7030; Q9967